=== PATIENT | female | born 1985 | race American Indian/Alaskan Native ===

== ENCOUNTER 2018-09-28 08:59 | Emergency (ER) | payer OTHER ==
--- NOTE | 2018-09-28 10:09 | Emergency Department Report ---
[facility] Chief Complaint: Eye Problems Stated Complaint: PINK EYE Time Seen by Provider: 09/28/18 09:45 Duration: 2 Days Side: Bilateral Severity: mild Symptoms: Yes Eye Itching, Yes Eye Redness, Yes Contact Lens Use (Rx), No Eye Pain, No Mucous Drainage, No Purulent Drainage, No Blurred Vision, No Preceding URI, No H/O Allergic Rhinitis, No Trauma, No Fever, No Headache Other History: 32-year-old female presents with bilateral eye redness and pain times a couple of days with no complications. Patient denies any foreign object in his loss of vision. ED Review of Systems ROS: Stated complaint: PINK EYE Other details as noted in HPI Comment: All other systems reviewed and negative ED Past Medical Hx - Past Medical History Previous Medical History?: Yes Hx Hypertension: Yes - Surgical History Past Surgical History?: No - Social History Smoking Status: Never Smoker Substance Use Type: None - Medications Home Medications: Home Medications Medication Instructions Recorded Confirmed Last Taken Type Ofloxacin [Ocuflox 0.3%] 1 - 2 drop OP Q6HR #1 bottle 09/28/18 Unknown Rx [facility] Exam - Exam General: Vital signs noted. No distress. Alert and acting appropriately. Eye Exam: Both Injection, Neither Chemosis, Neither Abnormal Pupil, Neither EOMI, Neither Eye Foreign Body, Neither Lid Foreign Body, Neither Mucous Discharge, Neither Purulent Discharge, Neither Fluorescein Uptake HEENT: No Nasal Congestion, No Pharyngeal Erythema Remainder of HEENT: Normal Lungs: Yes Clear Lung Sounds, Yes Good Air Exchange, No Wheezes, No Stridor, No Cough, No Nasal Flaring, No Retractions, No Use of Accessory Muscles ED Course Vital Signs 09/28/18 09:08 Temperature 98.6 F Pulse Rate 104 H Respiratory 16 Rate Blood Pressure 163/104 [Right] O2 Sat by Pulse 100 Oximetry ED Medical Decision Making - Medical Decision Making 32-year-old female presents with bilateral eye conjunctivitis ED course: melchor lamp test shows no corneal abrasion. discussed this with the patient. Discussed the patient will be going home on antibiotic eyedrops to apply 4-5 times a day I discussed the patient is new or worsening symptoms to return to ED immediately Patient's vital signs are stable he's in no distress. Patient is vision is intact, visual acuity test performed, within normal limits. Discussed the patient to follow up with her primary care physician in 3-5 days. Critical care attestation.: If time is entered above; I have spent that time in minutes in the direct care of this critically ill patient, excluding procedure time. ED Disposition Clinical Impression: Conjunctivitis Disposition: TO HOME OR SELFCARE Is pt being admited?: No Does the pt Need Aspirin: No Condition: Stable Instructions: Conjunctivitis (ED) Additional Instructions: Make sure to follow up with the primary care physician as discussed. Take all your medications as you've been prescribed. If you have any worsening symptoms or develop new symptoms please return to ED immediately. Prescriptions: Ofloxacin [Ocuflox 0.3%] 1 - 2 drop OP Q6HR #1 bottle Referrals: DREAD VALENCIA MD [Staff Physician] - 3-5 Days [facility] - 3-5 Days Forms: Accompanied Note, Work/School Release Form(ED) Time of Disposition: 10:09
== END 2018-09-28 10:20 | disposition home or self-care (01) ==
LOC: ED 08:59
CPT/HCPCS: 99281

== ENCOUNTER 2019-03-19 09:53 | Emergency (ER) | payer OTHER ==
[2019-03-19 10:00] VITALS: BP 154/97
[2019-03-19] MEDS ORDERED: TETRACAINE 0.5% OU ONE (11:22)
[2019-03-19] MEDS ORDERED: FUL-GLO OP ONE (11:22)
--- NOTE | 2019-03-19 11:41 | Emergency Department Report ---
[facility] Chief Complaint: Eye Problems Stated Complaint: EYE IRRITATION Time Seen by Provider: 03/19/19 11:20 Duration: 1 Day Side: Left Severity: mild Symptoms: Yes Eye Itching, Yes Eye Redness, No Eye Pain, No Mucous Drainage, No Purulent Drainage, No Blurred Vision, No Preceding URI, No H/O Allergic Rhinitis, No Contact Lens Use, No Trauma, No Fever, No Headache Other History: This is a 33-year-old female nontoxic, well nourished in appearance, no acute signs of distress presents to the ED with c/o of left eye redness, itching and crusting that started 3 days ago. Patient denies any trauma to the eye. Denies any foreign body sensation or floaters. Patient denies any eye pain. Patient denies any visual changes or decreased vision. Patient denies any fever, chills, nausea, vomiting, chest pain, breath, headache, stiff neck numbness or tingling. Patient denies any allergies. ED Review of Systems ROS: Stated complaint: EYE IRRITATION Other details as noted in HPI Constitutional: denies: chills, fever Eyes: eye discharge. denies: eye pain, vision change ENT: denies: ear pain, throat pain Respiratory: denies: cough, shortness of breath, wheezing Cardiovascular: denies: chest pain, palpitations Endocrine: no symptoms reported Gastrointestinal: denies: abdominal pain, nausea, diarrhea Genitourinary: denies: urgency, dysuria, discharge Musculoskeletal: denies: back pain, joint swelling, arthralgia Skin: denies: rash, lesions Neurological: denies: headache, weakness, paresthesias Psychiatric: denies: anxiety, depression Hematological/Lymphatic: denies: easy bleeding, easy bruising ED Past Medical Hx - Past Medical History Previous Medical History?: Yes Hx Hypertension: Yes - Surgical History Past Surgical History?: No - Social History Smoking Status: Never Smoker Substance Use Type: Alcohol - Medications Home Medications: Home Medications Medication Instructions Recorded Confirmed Last Taken Type Ofloxacin [Ocuflox 0.3%] 1 - 2 drop OP Q6HR #1 bottle 09/28/18 Unknown Rx Polymyxin B Sulf/Trimethoprim 2 drops OS TID #1 drops 03/19/19 Unknown Rx [Polytrim Eye Drops] [facility] Exam - Exam General: Vital signs noted. No distress. Alert and acting appropriately. Eye Exam: Neither Injection, Neither Chemosis, Neither Abnormal Pupil, Neither EOMI, Neither Eye Foreign Body, Neither Lid Foreign Body, Neither Mucous Discharge, Neither Purulent Discharge, Neither Fluorescein Uptake, Neither Fluorescein Uptake (slit lamp), Neither Cell/Flare (slit lamp), Neither Corneal Edema, Neither Photophobia HEENT: No Nasal Congestion, No Pharyngeal Erythema Remainder of HEENT: Normal Lungs: Yes Clear Lung Sounds, Yes Good Air Exchange, No Wheezes, No Stridor, No Cough, No Nasal Flaring, No Retractions, No Use of Accessory Muscles Exam: Under Arias lamp, I used fluorescein and tetracaine to examine cornea for corneal abrasion or foreign body, negative for coronary abrasion or foreign body noted upon exam. Tonopen- 6, 9, and 10 to left eye. Visual acuity with no content lens to left eye: 20/40. Right with contact lens on: 20/30 ED Course Vital Signs 03/19/19 09:59 Temperature 98.7 F Pulse Rate 90 Respiratory 18 Rate Blood Pressure 154/97 O2 Sat by Pulse 98 Oximetry - Reevaluation(s) Reevaluation #1: 03/19/19 11:39 Patient is speaking in full sentences with no signs of distress noted. Critical care attestation.: If time is entered above; I have spent that time in minutes in the direct care of this critically ill patient, excluding procedure time. ED Disposition Clinical Impression: Conjunctivitis, left eye Qualifiers: Conjunctivitis type: acute Acute conjunctivitis type: bacterial Qualified Code(s): H10.32 - Unspecified acute conjunctivitis, left eye Disposition: DC-01 TO HOME OR SELFCARE Is pt being admited?: No Does the pt Need Aspirin: No Condition: Stable Instructions: Conjunctivitis (ED) Additional Instructions: Follow-up with a tray room worker doctor in 3-5 days or if symptoms worsen and continue return to emergency room as soon as possible. Prescriptions: Polymyxin B Sulf/Trimethoprim [Polytrim Eye Drops] 2 drops OS TID #1 drops Referrals: BALJEET HOOVER MD [Primary Care Provider] - 3-5 Days PRIMARY CAREMD [Referring] - 3-5 Days DREAD VALENCIA MD [Staff Physician] - 3-5 Days Forms: Work/School Release Form(ED)
== END 2019-03-19 12:07 | disposition home or self-care (01) ==
LOC: ED 09:53
DX: H10.9 Unspecified conjunctivitis (principal); I10 Essential (primary) hypertension

== ENCOUNTER 2019-08-13 11:00 | Outpatient (CLI) | payer SELFPAY | END 2019-08-13 11:01 | disposition home or self-care (01) | LOC: SLR 11:00 | DX: G47.33 Obstructive sleep apnea (adult) (pediatric) (principal) | CPT/HCPCS: G0399 ==

== ENCOUNTER → 2021-10-02 | Outpatient (CLI) | payer OTHER | END | disposition home or self-care (01) | LOC: SLR 11:00 | PROVIDERS: ATTEND Family Medicine | DX: G47.33 Obstructive sleep apnea (adult) (pediatric) (principal) | CPT/HCPCS: G0399 ==